=== PATIENT | male | born 1975 | race American Indian/Alaskan Native ===

== ENCOUNTER 2021-06-09 13:29 | Emergency (ER) | payer SELFPAY ==
[2021-06-09 13:39] VITALS: BP 156/83
[2021-06-09] MEDS ORDERED: IBUPROFEN 800 MG TAB PO ONE (14:16)
[2021-06-09] MEDS ORDERED: oxyCODONE /ACETAMINOPHEN 5-325MG TAB PO ONE (14:16)
[2021-06-09] MEDS ORDERED: TETANUS,DIPH,PERTUSS(ACELL) VACCINE 0.5 ML SYRINGE IM ONE (14:16)
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
[2021-06-09] MEDS ORDERED: NEOMY 3.5 MG/BACIT 400 UNITS/POLY B 5000 UNITS/GM OINT PACKET TP ONE (16:12)
== END 2021-06-09 17:10 | disposition home or self-care (01) ==
LOC: ED 13:29
DX: T23.009A Burn of unspecified degree of unspecified hand, unspecified site, initial encounter (principal); F17.200 Nicotine dependence, unspecified, uncomplicated; Z98.890 Other specified postprocedural states; Z79.899 Other long term (current) drug therapy; X58.XXXA Exposure to other specified factors, initial encounter; Y93.89 Activity, other specified; Y92.89 Other specified places as the place of occurrence of the external cause; Y99.8 Other external cause status
CPT/HCPCS: 12001; 90471; 90715; 99282; A6250